=== PATIENT | female | born 1945 ===

== ENCOUNTER 2017-03-02 19:36 | Inpatient (IN) | payer SELFPAY ==
[2017-03-02 19:40] VITALS: BMI 28.5
[2017-03-02] MEDS ORDERED: Labetalol 25mg/5ml Syringe IVP STA ×2 (19:43→21:17)
[2017-03-02] MEDS ORDERED: Labetalol 25mg/5ml Syringe ONE ×2 (19:49→21:45)
[2017-03-02 19:59] LABS: BASO % 0.1 % (0.0-2.0); HEMATOCRIT 42.2 % (34.0-47.0); LYMPH # 0.5 K/uL (1.0-4.3); LYMPH % 2.3 % (20.0-40.0); MEAN CELL VOLUME 82.8 fL (81.0-99.0); MEAN CORPUSCULAR HEMOGLOBIN 26.3 pg (27.0-31.0); MEAN CORPUSCULAR HGB CONC 31.8 g/dL (33.0-37.0); MEAN PLATELET VOLUME 10.3 fL (7.2-11.7); MONO # 1.2 K/uL (0.0-0.8); MONO % 5.6 % (0.0-10.0); PLATELET COUNT 148 K/uL (130-400); RED CELL DISTRIBUTION WIDTH 14.4 % (11.5-14.5); WHITE BLOOD COUNT 21.2 K/uL (4.8-10.8)
--- NOTE | 2017-03-02 20:08 | CT ---
EXAM: CT Head Without Intravenous Contrast CLINICAL HISTORY: 71 years old, female; Signs and symptoms; Other: Code stroke TECHNIQUE: Axial computed tomography images of the head/brain without intravenous contrast. All CT scans at this facility use one or more dose reduction techniques, viz.: automated exposure control; ma/kV adjustment per patient size (including targeted exams where dose is matched to indication; i.e. head); or iterative reconstruction technique. COMPARISON: No relevant prior studies available. FINDINGS: Brain: Significant bilateral white matter changes. This is nonspecific and may include microangiopathic disease, small lacunae of indeterminate chronicity, chronic infarcts and/or encephalomalacia. Vascular calcification. No hemorrhage. No edema. Ventricles: No hydrocephalus. Bones: Skull is intact. Sinuses: No acute sinusitis. Mastoid air cells: No mastoid effusion. IMPRESSION: Significant bilateral white matter changes. This is nonspecific and may include microangiopathic disease, small lacunae of indeterminate chronicity, chronic infarcts and/or encephalomalacia. Vascular calcification. Acute infarcts/early ischemic changes may not be detectable by this modality; MRI is more sensitive in detecting acute ischemia and should be considered if acute stroke is clinically suspected, unless contraindicated in this patient.
[2017-03-02 20:09] LABS: INR 1.1
[2017-03-02 20:12] LABS: CHLORIDE 96 mmol/L (98-107); SODIUM 134 mmol/L (132-148)
[2017-03-02 20:13] LABS: POTASSIUM 3.6 mmol/L (3.6-5.2)
[2017-03-02 20:14] LABS: CHOLESTEROL 139 mg/dL (0-199)
[2017-03-02 20:15] LABS: ALB/GLOB RATIO 1.1 (1.0-2.1); ALKALINE PHOSPHATASE 88 U/L (38-126); ALT/SGPT 35 U/L (9-52); AST/SGOT 56 U/L (14-36); BILIRUBIN,TOTAL 1.2 mg/dL (0.2-1.3); BLOOD UREA NITROGEN 20 mg/dL (7-17); CALCIUM 10.1 mg/dl (8.6-10.4); CARBON DIOXIDE 25 mmol/L (22-30); GFR AFRICAN-AMERICAN > 60; GLUCOSE,RANDOM 193 mg/dL (65-105); TOTAL PROTEIN 8.1 g/dL (6.3-8.3)
--- NOTE | 2017-03-02 21:08 | C.PDOC ---
History Of Present Illness 71 year old female brought from home by EMS for an acute change in mental status. Patient was found by her prostrated on her bed asking to be taken to the bathroom, states he had difficulty walking her to the bathroom and she became incontinent, lethargic, and delirious. Time Seen by Provider: 03/02/17 19:39 Chief Complaint (Nursing): Altered Mental Status History Per: Family History/Exam Limitations: None Onset/Duration Of Symptoms: Hrs Onset Of Symptoms: Cannot Confirm Onset Current Symptoms Are (Timing): Still Present Usual Baseline: Other (Normal) Exacerbating Factor(s): Unknown Use Of Anticoag/Antiplatelets: No Recent travel outside of the [place]: No Associated Symptoms: Confused, Incontinence Past Medical History Reviewed: Historical Data, Nursing Documentation, Vital Signs Vital Signs: Last Vital Signs Temp 99.6 F 03/03/17 01:48 Pulse 96 H 03/03/17 01:48 Resp 20 03/03/17 01:48 BP 151/63 H 03/03/17 01:48 Pulse Ox 100 03/03/17 01:48 - Medical History PMH: HTN Surgical History: No Surg Hx Family History: States: Unknown Family Hx - Social History Hx Alcohol Use: No Hx Substance Use: No - Immunization History Hx Tetanus Toxoid Vaccination: No Hx Influenza Vaccination: No Hx Pneumococcal Vaccination: No Review Of Systems Review Of Systems: ROS cannot be obtained secondary to pt's inabilty to answer questions. Physical Exam - Physical Exam Appears: Confused, Other (Answers yes and no questions) Skin: Normal Color, Warm, Dry Head: Atraumatic, Normacephalic Eye(s): bilateral: Normal Inspection, EOMI Oral Mucosa: Moist Neck: Normal, Supple Chest: Symmetrical, No Tenderness Cardiovascular: Rhythm Regular Respiratory: Normal Breath Sounds, No Rales, No Rhonchi, No Wheezing Gastrointestinal/Abdominal: Soft, No Tenderness Extremity: Pedal Edema, Other (Moves extremities purposefully) ED Course And Treatment - Laboratory Results Result Diagrams: 03/02/17 19:56 03/02/17 19:56 Lab Interpretation: Abnormal (++ leukocytosis of ? source, CSF with WBC 3, RBC 42, Glu 97, Total Protein 75,) ECG: Interpreted By Nd ECG Rhythm: Sinus Rhythm ECG Interpretation: Normal Rate From EC O2 Sat by Pulse Oximetry: 99 Pulse Ox Interpretation: Normal - Radiology CXR: Interpreted by Me CXR Interpretation: Yes: No Acute Disease - CT Scan/US head CT Other Rad Studies (CT/US): Read By Radiologist (no acute changes), Radiology Report Reviewed Progress Note: Rocephin, Ampicillin, Vanco, labetolol IV x 2, lasix,. ketamine for sedation Reevaluation Time: 00:09 Reassessment Condition: Improved (persistent delerium, but calm cooperative) - Physician Consult Information Outcome Of Conversation: 0000: d/w Dr. Kim, Hospitalist covering [facility] pts, ok to tele Obs. Lumbar Puncture - Time Out Time Out: Side verified, Site verified, Patient ID confirmed, Sterile procedures obs. - Consent obtained Consent obtained: Written - Performed by Performed by: Attending Physician - Indications Indication(s): Suspected menigitis - Contraindications Contraindications: None - Patient Position Patient position: Left lateral decubitus - Local Anesthetic Local Anesthetic: lidocaine 1% Location: L2/L3 Needle size gauge: 21 Opening pressure cm CSF: 22 mm - Fluid Appearance Fluid Appearance: Clear - Post-procedure Post-procedure: No leak/bld from LP site, Dressing applied, Patient laid flat, Neurovascular status nml - CSF Studies CSF Studies: Cell count/diff, Glucose, Protein, Gram stain, culture/sensitivity - Complications Complications: None - Patient tolerated procedure Patient tolerated procedure: Well - Notes: Notes:: gentle sedation w Ketamine 150 mg IV with excellent result for approx 20 minutes - adequate for procedure, no further sedation required. Well tolerated. NIHSS Stroke Scale - Date/Time Evaluation Performed Date Performed: 03/02/17 Time Performed: 19:35 When Was NIHSS Performed: Baseline - How Severe is the Stoke Level of Consciousness: 1=Drowsy LOC to Questions: 2=Neither correct LOC to commands: 2=Neither correct Best Gaze: 0=Normal Visual: 0=No visual loss Facial: 0=Normal Motor Arm - Left: 0=No drift Motor Arm - Right: 0=No drift Motor Leg - Left: 0=No drift Motor Leg - Right: 0=No drift Limb Ataxia: 0=Absent Sensory: 0=Normal Best Language: 2=Severe aphasia Dysarthia: 2=Severe, near unintelligible or worse (non-verbal) Extinction & Inattention (Neglect): 0=Normal, no object Score: 9 Severity Of Stroke: 5-15= Moderate Stroke rTPA Inclusion/Exclusion - Refusal of Treatment Patient Refused Treatment: No - Inclusion Criteria for Altepase Patient is 18 years or Older: Yes Clinical DX Ischemic Stroke Cause Neurological Deficit: Yes Time of Onset Established Less Than 270 Mins Before TX Begin: No Risk/Benefit Discussed With Patient/Family Member Present: No - Exclusion Criteria for Altepase Uncontrolled Hypertension at Time of TX (SBP>185 or DBP>110): Yes Medical Decision Making Medical Decision Making: change of mental status and leukocytosis, uncontrolled HTN and elev glu pt with h/o non-compliance. though no nuchal rigidity nor photophobia, no source for leukocytosis found Empirically covered with triple ABX for suspicion of early meningitis LP with essentially normal CSF Pt essentially persistent delerium. Disposition Doctor Will See Patient In The: Hospital Counseled Patient/Family Regarding: Studies Performed, Diagnosis - Disposition Disposition: HOSPITALIZED Disposition Time: 00:15 Condition: FAIR - Clinical Impression Clinical Impression: Mental status change - Scribe Statement The provider has reviewed the documentation as recorded by the Marshalibmague Gonzales All medical record entries made by the Marshalibmague were at my direction and personally dictated by me. I have reviewed the chart and agree that the record accurately reflects my personal performance of the history, physical exam, medical decision making, and the department course for this patient. I have also personally directed, reviewed, and agree with the discharge instructions and disposition.
[2017-03-02 21:11] LABS: NEUTROPHIL 92 % (50-75); TOTAL CELLS COUNTED 100
[2017-03-02] MEDS ORDERED: Vancomycin 1 GM 1 GM/250 ML BAG IV ONE (21:15)
[2017-03-02 21:46] LABS: RBC URINE 7 /hpf (0-3); URINE BACTERIA RARE (<OCC); URINE BILIRUBIN NEGATIVE (NEGATIVE); URINE BLOOD 2+ (NEGATIVE); URINE COLOR Yellow (YELLOW); URINE GLUCOSE (UA) 1+ mg/dL (Normal); URINE KETONE NEGATIVE (NEGATIVE); URINE PROTEIN 3+ mg/dL (NEGATIVE); URINE UROBILINOGEN NORMAL mg/dL (0.2-1.0); WBC URINE 10 /hpf (0-5)
[2017-03-02 21:47] LABS: URINE LEUKOCYTE ESTERASE 1+ Leu/uL (Negative)
[2017-03-02] MEDS ORDERED: Ampicillin 2 GM in Sodium Chloride 0.9% 100 ML IVPB ONE (22:00)
[2017-03-02] MEDS ORDERED: Vancomycin 1 gm/NS 200 ml 1 GM/200 ML BAG IVPB STA (22:02)
[2017-03-02] MEDS ORDERED: Ketamine 50 mg/ml Inj (10 ml) IV STA (22:04)
[2017-03-02] MEDS ORDERED: Ketamine 50 mg/ml Inj (10 ml) ONE (22:23)
[2017-03-02 23:14] LABS: FLUID TYPE SPINAL FLUID
[2017-03-03] MEDS ORDERED: DEXTROSE 5% IV SCH (02:00)
[2017-03-03] MEDS ORDERED: WATER IV SCH (02:00)
[2017-03-03] MEDS: Dextrose 5%/0.9% NS 1,000 ML IV SCH ×3 (02:00→22:05)
[2017-03-03] MEDS ORDERED: ACYCLOVIR IV SCH (02:00)
--- NOTE | 2017-03-03 02:20 | CP.PCM.HP ---
<Yovany He - Last Filed: 03/03/17 02:05> History of Present Illness - History of Present Illness History of Present Illness: Medicine H/P CC: AMS HPI: Patient is a 71F with a PMH of DM, HLD, HTN, Epilepsy and Migraines who presents to the ED with AMS. Her found her at 3:30 am hanging off the side of the bed but still responsive. He states that yesterday she was unsteady on her feet. He put the patient back to bed when he found her. At 5pm the daughter arrived at the house and the patient was unable to recognize her daughter or her grandchildren. states the patient was struggling walking to the bathroom. She had vomit on her shirt when he found her and also vomited when he walked her to the bathroom. Patient had a normal BM today but had diarrhea 3 days ago. Denies prior episodes. describes the vomit as coffee grounds. + weakness and dizziness, + changes in speech and confusion. Denies ROSADO , CP, abdominal pain, leg pain, rash, changes in urine or blood in urine. Denies sick contacts, denies recent travel. ROS: * Constitutional: denies WL * HEENT: cataracts * Lungs: denies * Heart: denies echo/cath * GI: alternating diarrhea and constipation * Renal, denies * : denies * Breast: denies * MSK: denies falls, back pain, ambulates independently * Neuro: denies CVA. History of seizures, denies memory changes. + weakness, Denies numbness, MS, Alzheimer, myasthenia gravis * Endo: denies thyroid, +DM, Denies adrenal * Psych: Denies previous hospitalizations * Skin: Denies * Heme: denies easy bruising, anemia, leukemia, transfusion, transfusion, clotting disorders, anticoagulation disorders * Onc: denies cancer, immune problems * ID: denies MRSA, C. diff, HIV PMH: * Migrains * DM * HTN * HLD * Epilepsy PSH: Tubal Ligation FH: Mother strokes SH: , lives with , 120 pack year smoking history, 1 pint per day for 30 years, denies illicit drugs Meds: none Allergies: none Full Code Present on Admission - Present on Admission Any Indicators Present on Admission: No Review of Systems - Constitutional Constitutional: As Per HPI - EENT Eyes: As Per HPI Ears: As Per HPI - Breasts Breasts: As Per HPI - Cardiovascular Cardiovascular: As Per HPI - Respiratory Respiratory: As Per HPI - Gastrointestinal Gastrointestinal: As Per HPI - Genitourinary Genitourinary: As Per HPI - Reproductive: Female Reproductive:Female: As Per HPI - Menstruation Menstruation: As Per HPI - Musculoskeletal Musculoskeletal: As Per HPI - Integumentary Integumentary: As Per HPI - Neurological Neurological: As Per HPI - Psychiatric Psychiatric: As Per HPI - Endocrine Endocrine: As Per HPI - Hematologic/Lymphatic Hematologic: As Per HPI Past Patient History - Past Social History Smoking Status: Light Smoker < 10 Cigarettes Daily - CARDIAC Hx Hypertension: Yes - ENDOCRINE/METABOLIC Hx Diabetes Mellitus Type 2: Yes - PSYCHIATRIC Hx Substance Use: No - SURGICAL HISTORY Other/Comment: possible hysterectomy or tubal ligation Meds Allergies/Adverse Reactions: Allergies Allergy/AdvReac Type Severity Reaction Status Date / Time No Known Allergies Allergy Verified 03/02/17 19:43 Physical Exam - Constitutional Appears: Chronically Ill - Head Exam Head Exam: ATRAUMATIC, NORMAL INSPECTION, NORMOCEPHALIC - Eye Exam Eye Exam: PERRL - ENT Exam ENT Exam: Mucous Membranes Moist - Respiratory Exam Respiratory Exam: Clear to Auscultation Bilateral, NORMAL BREATHING PATTERN - Cardiovascular Exam Cardiovascular Exam: REGULAR RHYTHM - GI/Abdominal Exam GI & Abdominal Exam: Normal Bowel Sounds, Soft. absent: Distended, Tenderness - Extremities Exam Extremities exam: Positive for: tenderness (withdraws to palpation of the LE) - Neurological Exam Neurological exam: Altered Results - Vital Signs Recent Vital Signs: Last Vital Signs Temp 99.6 F 03/03/17 01:48 Pulse 96 H 03/03/17 01:48 Resp 20 03/03/17 01:48 BP 151/63 H 03/03/17 01:48 Pulse Ox 100 03/03/17 01:48 - Labs Result Diagrams: 03/02/17 19:56 03/02/17 19:56 Labs: Laboratory Results - last 24 hr 03/02/17 03/02/17 03/02/17 19:39 19:56 19:56 WBC 21.2 H RBC 5.09 Hgb 13.4 Hct 42.2 MCV 82.8 MCH 26.3 L MCHC 31.8 L RDW 14.4 Plt Count 148 MPV 10.3 Neut % (Auto) 92.0 H Lymph % (Auto) 2.3 L Glades % (Auto) 5.6 Eos % (Auto) 0.0 Baso % (Auto) 0.1 Neut # 19.5 H Lymph # 0.5 L Glades # 1.2 H Eos # 0.0 Baso # 0.0 Neutrophils % (Manual) 92 H Lymphocytes % (Manual) 6 L Monocytes % (Manual) 2 Platelet Estimate Normal PT 12.8 H INR 1.1 APTT 32 Sodium Potassium Chloride Carbon Dioxide Anion Gap BUN Creatinine Est GFR ( Amer) Est GFR (Non-Af Amer) POC Glucose (mg/dL) 194 H Random Glucose Hemoglobin A1c Calcium Total Bilirubin AST ALT Alkaline Phosphatase Troponin I Total Protein Albumin Globulin Albumin/Globulin Ratio Triglycerides Cholesterol LDL Cholesterol Direct HDL Cholesterol Urine Color Urine Clarity Urine pH Ur Specific Colliers Urine Protein Urine Glucose (UA) Urine Ketones Urine Blood Urine Nitrate Urine Bilirubin Urine Urobilinogen Ur Leukocyte Esterase Urine WBC (Auto) Urine RBC (Auto) Urine Bacteria Fluid Type CSF Volume CSF Appearance CSF WBC CSF RBC CSF Total Cell Counted CSF Monos/Macrophages CSF Comment CSF Glucose CSF Total Protein 03/02/17 03/02/17 03/02/17 19:56 19:56 21:28 WBC RBC Hgb Hct MCV MCH MCHC RDW Plt Count MPV Neut % (Auto) Lymph % (Auto) Glades % (Auto) Eos % (Auto) Baso % (Auto) Neut # Lymph # Glades # Eos # Baso # Neutrophils % (Manual) Lymphocytes % (Manual) Monocytes % (Manual) Platelet Estimate PT INR APTT Sodium 134 Potassium 3.6 Chloride 96 L Carbon Dioxide 25 Anion Gap 16 BUN 20 H Creatinine 0.9 Est GFR ( Amer) > 60 Est GFR (Non-Af Amer) > 60 POC Glucose (mg/dL) Random Glucose 193 H Hemoglobin A1c 6.7 H Calcium 10.1 Total Bilirubin 1.2 AST 56 H ALT 35 Alkaline Phosphatase 88 Troponin I 0.0250 Total Protein 8.1 Albumin 4.1 Globulin 3.9 Albumin/Globulin Ratio 1.1 Triglycerides 69 Cholesterol 139 LDL Cholesterol Direct 35 HDL Cholesterol 79 H Urine Color Yellow Urine Clarity Clear Urine pH 6.0 Ur Specific [place]liers 1.018 Urine Protein 3+ H Urine Glucose (UA) 1+ Urine Ketones Negative Urine Blood 2+ H Urine Nitrate Negative Urine Bilirubin Negative Urine Urobilinogen Normal Ur Leukocyte Esterase 1+ H Urine WBC (Auto) 10 H Urine RBC (Auto) 7 H Urine Bacteria Rare Fluid Type CSF Volume CSF Appearance CSF WBC CSF RBC CSF Total Cell Counted CSF Monos/Macrophages CSF Comment CSF Glucose CSF Total Protein 03/02/17 03/02/17 22:57 23:11 WBC RBC Hgb Hct MCV MCH MCHC RDW Plt Count MPV Neut % (Auto) Lymph % (Auto) Glades % (Auto) Eos % (Auto) Baso % (Auto) Neut # Lymph # Glades # Eos # Baso # Neutrophils % (Manual) Lymphocytes % (Manual) Monocytes % (Manual) Platelet Estimate PT INR APTT Sodium Potassium Chloride Carbon Dioxide Anion Gap BUN Creatinine Est GFR ( Amer) Est GFR (Non-Af Amer) POC Glucose (mg/dL) Random Glucose Hemoglobin A1c Calcium Total Bilirubin AST ALT Alkaline Phosphatase Troponin I Total Protein Albumin Globulin Albumin/Globulin Ratio Triglycerides Cholesterol LDL Cholesterol Direct HDL Cholesterol Urine Color Urine Clarity Urine pH Ur Specific Colliers Urine Protein Urine Glucose (UA) Urine Ketones Urine Blood Urine Nitrate Urine Bilirubin Urine Urobilinogen Ur Leukocyte Esterase Urine WBC (Auto) Urine RBC (Auto) Urine Bacteria Fluid Type Spinal fluid CSF Volume 1 CSF Appearance Clear/colorless CSF WBC 3.0 CSF RBC 42.0 H CSF Total Cell Counted TEST NOT PERFORMED CSF Monos/Macrophages TEST NOT PERFORMED CSF Comment CSF Glucose 97 H CSF Total Protein 75.0 H Assessment & Plan - Assessment and Plan (Free Text) Assessment: AMS * Consider viral meningitis * CT head: chronic white matter changes * LP * glucose 97 * protien 75 * WBC 3 * F/U gram stain/culture * F/U MRI brain * ID ([place]) * acyclovir 800mg IV Q12 * Blood cultures - F/U DM * accuchecks * ISS High dose Hx of coffee-ground Emesis * FOBT x2 - F/U * IV protonix PPx * colace * IV protonix * PT/OT * D5NS @ 100 <Juan Kim - Last Filed: 03/03/17 06:25> Results - Vital Signs Recent Vital Signs: Last Vital Signs Temp 98.7 F 03/03/17 05:49 Pulse 102 H 03/03/17 03:00 Resp 95 H 03/03/17 03:00 BP 157/72 H 03/03/17 03:00 Pulse Ox 99 03/03/17 02:21 - Labs Result Diagrams: 03/02/17 19:56 03/02/17 19:56 Labs: Laboratory Results - last 24 hr 03/02/17 03/02/17 03/02/17 19:39 19:56 19:56 WBC 21.2 H RBC 5.09 Hgb 13.4 Hct 42.2 MCV 82.8 MCH 26.3 L MCHC 31.8 L RDW 14.4 Plt Count 148 MPV 10.3 Neut % (Auto) 92.0 H Lymph % (Auto) 2.3 L Glades % (Auto) 5.6 Eos % (Auto) 0.0 Baso % (Auto) 0.1 Neut # 19.5 H Lymph # 0.5 L Glades # 1.2 H Eos # 0.0 Baso # 0.0 Neutrophils % (Manual) 92 H Lymphocytes % (Manual) 6 L Monocytes % (Manual) 2 Platelet Estimate Normal PT 12.8 H INR 1.1 APTT 32 Sodium Potassium Chloride Carbon Dioxide Anion Gap BUN Creatinine Est GFR ( Amer) Est GFR (Non-Af Amer) POC Glucose (mg/dL) 194 H Random Glucose Hemoglobin A1c Calcium Total Bilirubin AST ALT Alkaline Phosphatase Troponin I Total Protein Albumin Globulin Albumin/Globulin Ratio Triglycerides Cholesterol LDL Cholesterol Direct HDL Cholesterol Urine Color Urine Clarity Urine pH Ur Specific Colliers Urine Protein Urine Glucose (UA) Urine Ketones Urine Blood Urine Nitrate Urine Bilirubin Urine Urobilinogen Ur Leukocyte Esterase Urine WBC (Auto) Urine RBC (Auto) Urine Bacteria Fluid Type CSF Volume CSF Appearance CSF WBC CSF RBC CSF Total Cell Counted CSF Monos/Macrophages CSF Comment CSF Glucose CSF Total Protein 03/02/17 03/02/17 03/02/17 19:56 19:56 21:28 WBC RBC Hgb Hct MCV MCH MCHC RDW Plt Count MPV Neut % (Auto) Lymph % (Auto) Glades % (Auto) Eos % (Auto) Baso % (Auto) Neut # Lymph # Glades # Eos # Baso # Neutrophils % (Manual) Lymphocytes % (Manual) Monocytes % (Manual) Platelet Estimate PT INR APTT Sodium 134 Potassium 3.6 Chloride 96 L Carbon Dioxide 25 Anion Gap 16 BUN 20 H Creatinine 0.9 Est GFR ( Amer) > 60 Est GFR (Non-Af Amer) > 60 POC Glucose (mg/dL) Random Glucose 193 H Hemoglobin A1c 6.7 H Calcium 10.1 Total Bilirubin 1.2 AST 56 H ALT 35 Alkaline Phosphatase 88 Troponin I 0.0250 Total Protein 8.1 Albumin 4.1 Globulin 3.9 Albumin/Globulin Ratio 1.1 Triglycerides 69 Cholesterol 139 LDL Cholesterol Direct 35 HDL Cholesterol 79 H Urine Color Yellow Urine Clarity Clear Urine pH 6.0 Ur Specific [place] 1.018 Urine Protein 3+ H Urine Glucose (UA) 1+ Urine Ketones Negative Urine Blood 2+ H Urine Nitrate Negative Urine Bilirubin Negative Urine Urobilinogen Normal Ur Leukocyte Esterase 1+ H Urine WBC (Auto) 10 H Urine RBC (Auto) 7 H Urine Bacteria Rare Fluid Type CSF Volume CSF Appearance CSF WBC CSF RBC CSF Total Cell Counted CSF Monos/Macrophages CSF Comment CSF Glucose CSF Total Protein 03/02/17 03/02/17 22:57 23:11 WBC RBC Hgb Hct MCV MCH MCHC RDW Plt Count MPV Neut % (Auto) Lymph % (Auto) Glades % (Auto) Eos % (Auto) Baso % (Auto) Neut # Lymph # Glades # Eos # Baso # Neutrophils % (Manual) Lymphocytes % (Manual) Monocytes % (Manual) Platelet Estimate PT INR APTT Sodium Potassium Chloride Carbon Dioxide Anion Gap BUN Creatinine Est GFR ( Amer) Est GFR (Non-Af Amer) POC Glucose (mg/dL) Random Glucose Hemoglobin A1c Calcium Total Bilirubin AST ALT Alkaline Phosphatase Troponin I Total Protein Albumin Globulin Albumin/Globulin Ratio Triglycerides Cholesterol LDL Cholesterol Direct HDL Cholesterol Urine Color Urine Clarity Urine pH Ur Specific Colliers Urine Protein Urine Glucose (UA) Urine Ketones Urine Blood Urine Nitrate Urine Bilirubin Urine Urobilinogen Ur Leukocyte Esterase Urine WBC (Auto) Urine RBC (Auto) Urine Bacteria Fluid Type Spinal fluid CSF Volume 1 CSF Appearance Clear/colorless CSF WBC 3.0 CSF RBC 42.0 H CSF Total Cell Counted TEST NOT PERFORMED CSF Monos/Macrophages TEST NOT PERFORMED CSF Comment CSF Glucose 97 H CSF Total Protein 75.0 H Assessment & Plan - Date & Time Date: 03/03/17 (I have seen and examined the patient. I agree with the findings and plan of care as documented by Dr. He. Patient with acute mental status change. Lumbar puncture done in ED. Viral meningitis suspected. Acyclovir for now. Consult to ID. Fall precautions. Also with history of diabetes. Accucheck and NISS. Monitor for acute changes.) Time: 06:24 Attending/Attestation - Attestation I have personally seen and examined this patient.: Yes I have fully participated in the care of the patient.: Yes I have reviewed all pertinent clinical information: Yes
[2017-03-03] MEDS ORDERED: Pneumococcal 23-Valent Vaccine IM ONE (06:18)
--- NOTE | 2017-03-03 07:35 | RAD ---
HISTORY: Admission film COMPARISON: No prior. FINDINGS: LUNGS: Mild venous congestion. Right hilar prominence. PLEURA: No significant pleural effusion identified, no pneumothorax apparent. CARDIOVASCULAR: Normal. OSSEOUS STRUCTURES: No significant abnormalities. VISUALIZED UPPER ABDOMEN: Normal. OTHER FINDINGS: None. IMPRESSION: Mild venous congestion. Right hilar prominence.
[2017-03-03] MEDS: (Novolin R) Insulin Human Regular 100 units/ml vial SC SCH ×4 (08:21→21:43)
[2017-03-03] MEDS ORDERED: Gadodiamide 287 mg/ml 20 ml IV ONE (12:08)
--- NOTE | 2017-03-03 13:45 | MRI ---
PROCEDURE: MRI BRAIN WITH AND WITHOUT CONTRAST HISTORY: R/O Stroke, Viral Meningitis COMPARISON: None. TECHNIQUE: Multiplanar, multisequence MR images of the brain were obtained with (Omniscan 16 cc) and without intravenous contrast enhancement. FINDINGS: HEMORRHAGE: None DWI: No evidence of an acute or early subacute infarction. BRAIN PARENCHYMA: Expanded ventricular sulcal and cisternal spaces appreciated pattern with mild diffuse cerebral atrophy. There is relatively prominent chronic microangiopathy throughout the cerebrum manifest by subcortical and paravertebral centrum semiovale white matter signal abnormality. Similar changes mildly affect the alirio as well. No mass-effect is identified throughout. There is also no suspicious extra-axial fluid collection appreciated. ENHANCEMENT: No abnormal intracranial enhancement, including throughout the meninges. VENTRICLES: Unremarkable. No hydrocephalus. CRANIUM: Unremarkable. ORBITS: Grossly unremarkable. PARANASAL SINUSES/MASTOIDS: Clear VASCULAR SYSTEM: Skull base flow voids intact. OTHER FINDINGS: None . IMPRESSION: Age-related neuro degenerative change identified without definite acute intracranial findings as discussed above. No suspicious contrast enhancement pattern throughout the brain. There is no evidence to suggest meningitis based on the normal contrast enhancement pattern appreciated. Further clinical correlation is advised.
--- NOTE | 2017-03-03 20:08 | CP.PCM.PN ---
<Glenn Rizvi H - Last Filed: 03/03/17 21:53> Subjective - Date & Time of Evaluation Date of Evaluation: 03/03/17 Time of Evaluation: 14:00 - Subjective Subjective: Dr. Douglass note: Patient seen and examined in room. She is seen with family member in room. She is more awake and alert as compared to yesterday per patient's . She also reports to feeling better denying fever, chills, nausea, vomiting, photophobia, headache, neck pain, or stiffness. Objective - Vital Signs/Intake and Output Vital Signs (last 24 hours): Temp Pulse Resp BP Pulse Ox 99.2 F 100 H 20 149/73 95 03/03/17 15:17 03/03/17 16:00 03/03/17 15:17 03/03/17 15:17 03/03/17 15:17 Intake and Output: 03/03/17 03/04/17 18:59 06:59 Intake Total 627 Output Total 300 Balance 327 - Medications Medications: Current Medications Acetaminophen (Tylenol 325mg Tab) 650 mg PO Q6 PRN PRN Reason: Pain, Mild (1-3) Docusate Sodium (Colace) 100 mg PO BID PRN PRN Reason: Constipation Dextrose/Sodium Chloride (Dextrose 5%/0.9% Ns 1000 Ml) 1,000 mls @ 100 mls/hr IV .Q10H [facility] Last Admin: 03/03/17 14:11 Dose: 100 mls/hr Ceftriaxone Sodium 2 gm/ (Sodium Chloride) 100 mls @ 100 mls/hr IVPB Q12H [facility] Last Admin: 03/03/17 16:30 Dose: 100 mls/hr Acyclovir 800 mg/ Sodium (Chloride) 250 mls @ 166.667 mls/hr IV Q8H [facility] Last Admin: 03/03/17 14:06 Dose: 166.667 mls/hr Insulin Human Regular (Novolin R) 0 unit SC ACHS [facility] PRN Reason: Protocol Last Admin: 03/03/17 17:00 Dose: Not Given Ondansetron HCl (Zofran Inj) 4 mg IVP Q6 PRN PRN Reason: Nausea/Vomiting Pantoprazole Sodium (Protonix Inj) 40 mg IVP DAILY [facility] Last Admin: 03/03/17 09:41 Dose: 40 mg Pneumococcal Polyvalent Vaccine (Pneumovax 23 Vaccine) 0.5 ml IM .ONCE ONE Stop: 03/05/17 14:01 - Labs Labs: 03/02/17 19:56 03/02/17 19:56 PT 12.8 SECONDS (9.7-12.2) H 03/02/17 19:56 INR 1.1 03/02/17 19:56 APTT 32 SECONDS (21-34) 03/02/17 19:56 - Constitutional Appears: Non-toxic, No Acute Distress - Eye Exam Eye Exam: Normal appearance - Respiratory Exam Respiratory Exam: Clear to Ausculation Bilateral - Cardiovascular Exam Cardiovascular Exam: REGULAR RHYTHM, RRR, +S1, +S2 - GI/Abdominal Exam GI & Abdominal Exam: Soft. absent: Tenderness - Neurological Exam Neurological Exam: Alert, Awake, Oriented x3 Additional comments: No meningeal signs, no neck stiffness Assessment and Plan - Assessment and Plan (Free Text) Assessment: AMS- Viral Meningits 03/03: IV acylcyvir and Rocephin, results most likely show viral mengitis, also ordered a procalcentnis. MRI preformed which was unremarkable, culture is negative. removed her rao catheter. Removed her from isolation. * * Consider viral meningitis * CT head: chronic white matter changes * LP * glucose 97 * protien 75 * WBC 3 * F/U gram stain/culture * F/U MRI brain * ID (Gama) * acyclovir 800mg IV Q12 * Blood cultures - F/U UTI 03/03: IV Rocephin given, urine culture negative. DM * 03/03: continue accu checks, sliding sclale, with hypoglycemia protocol. * accuchecks * ISS High dose Hx of coffee-ground Emesis * 03/03: FOBT is negative, continue protonix * FOBT x2 - F/U * IV protonix PPx * 03/03: No IV fluids, need PT, protonix, colace. * colace * IV protonix * PT/OT * D5NS @ 100 <Komal Thrasher - Last Filed: 03/04/17 13:32> Objective - Vital Signs/Intake and Output Vital Signs (last 24 hours): Temp Pulse Resp BP Pulse Ox 98.0 F 67 20 153/74 H 97 03/04/17 08:05 03/04/17 08:05 03/04/17 08:05 03/04/17 08:05 03/04/17 08:05 Intake and Output: 03/04/17 03/04/17 06:59 18:59 Intake Total 1906 Output Total 450 Balance 1456 - Medications Medications: Current Medications Acetaminophen (Tylenol 325mg Tab) 650 mg PO Q6 PRN PRN Reason: Pain, Mild (1-3) Docusate Sodium (Colace) 100 mg PO BID PRN PRN Reason: Constipation Enoxaparin Sodium (Lovenox) 40 mg SC DAILY [facility] Dextrose/Sodium Chloride (Dextrose 5%/0.9% Ns 1000 Ml) 1,000 mls @ 100 mls/hr IV .Q10H [facility] Last Admin: 03/04/17 08:01 Dose: Not Given Ceftriaxone Sodium 2 gm/ (Sodium Chloride) 100 mls @ 100 mls/hr IVPB Q12H [facility] Last Admin: 03/04/17 03:50 Dose: 100 mls/hr Acyclovir 800 mg/ Sodium (Chloride) 250 mls @ 166.667 mls/hr IV Q8H [facility] Last Admin: 03/04/17 05:51 Dose: 166.667 mls/hr Insulin Human Regular (Novolin R) 0 unit SC ACHS [facility] PRN Reason: Protocol Last Admin: 03/04/17 12:48 Dose: 2 unit Ondansetron HCl (Zofran Inj) 4 mg IVP Q6 PRN PRN Reason: Nausea/Vomiting Pantoprazole Sodium (Protonix Inj) 40 mg IVP DAILY [facility] Last Admin: 03/04/17 10:26 Dose: 40 mg Pneumococcal Polyvalent Vaccine (Pneumovax 23 Vaccine) 0.5 ml IM .ONCE ONE Stop: 03/05/17 14:01 Potassium Chloride (K-Dur 20 Meq Er Tab) 40 meq PO BID [facility] Stop: 03/04/17 18:01 Last Admin: 03/04/17 10:26 Dose: 40 meq - Labs Labs: 03/04/17 08:26 03/04/17 08:26 PT 12.8 SECONDS (9.7-12.2) H 03/02/17 19:56 INR 1.1 03/02/17 19:56 APTT 32 SECONDS (21-34) 03/02/17 19:56 Attending/Attestation - Attestation I have personally seen and examined this patient.: Yes I have fully participated in the care of the patient.: Yes I have reviewed all pertinent clinical information, including history, physical exam and plan: Yes Notes (Text): Patient is a 71F with a PMH of DM, HLD, HTN, Epilepsy and Migraines who presents to the ED with AMS. Spoke to her at bedside Patient is lying comfortable.Patient had LP at ER. 1.Viral meningitis-IV acylcyvir and Rocephin. MRI preformed which was unremarkable follow culturs 2.DM 3.UTI 4.S/P coffee ground emesis continue protonix and DVT prophylaxis 03/04/17 13:32
[2017-03-04] MEDS: Dextrose 5%/0.9% NS 1,000 ML IV SCH ×2 (08:01→19:43)
[2017-03-04] MEDS: (Novolin R) Insulin Human Regular 100 units/ml vial SC SCH ×4 (08:02→21:42)
[2017-03-04 08:41] LABS: BASO % 0.3 % (0.0-2.0); EOS % 0.1 % (0.0-4.0); HEMATOCRIT 36.7 % (34.0-47.0); LYMPH # 1.4 K/uL (1.0-4.3); LYMPH % 14.6 % (20.0-40.0); MEAN CELL VOLUME 83.6 fL (81.0-99.0); MEAN CORPUSCULAR HEMOGLOBIN 26.7 pg (27.0-31.0); MEAN PLATELET VOLUME 10.7 fL (7.2-11.7); MONO # 0.9 K/uL (0.0-0.8); MONO % 9.2 % (0.0-10.0); RED CELL DISTRIBUTION WIDTH 14.3 % (11.5-14.5)
[2017-03-04 08:49] LABS: WHITE BLOOD COUNT 9.6 K/uL (4.8-10.8)
[2017-03-04 08:56] LABS: CHLORIDE 105 mmol/L (98-107); SODIUM 136 mmol/L (132-148)
[2017-03-04 08:57] LABS: ALB/GLOB RATIO 0.9 (1.0-2.1); ALKALINE PHOSPHATASE 52 U/L (38-126); AST/SGOT 109 U/L (14-36); BILIRUBIN,TOTAL 0.7 mg/dL (0.2-1.3); BLOOD UREA NITROGEN 13 mg/dL (7-17); CARBON DIOXIDE 24 mmol/L (22-30); GFR AFRICAN-AMERICAN > 60; GLUCOSE,RANDOM 110 mg/dL (65-105); PHOSPHOROUS 2.2 mg/dL (2.5-4.5); TOTAL PROTEIN 6.3 g/dL (6.3-8.3)
[2017-03-04 08:58] LABS: ALT/SGPT 43 U/L (9-52); CALCIUM 8.6 mg/dl (8.6-10.4); MAGNESIUM 1.6 mg/dL (1.6-2.3)
--- NOTE | 2017-03-04 09:51 | CP.PCM.PN ---
<Rao Cochran R - Last Filed: 03/04/17 11:15> Subjective - Date & Time of Evaluation Date of Evaluation: 03/04/17 Time of Evaluation: 09:48 - Subjective Subjective: PGY-1 note for medicine. There were no acute events overnight. She is voiding in bedpan as normal. She is alert and awake, AAOx3 but confused at times, possible dementia. She reports feeling tired. She denies fever, chills, nausea, vomiting, photophobia, headache , neck pain, or stiffness. Objective - Vital Signs/Intake and Output Vital Signs (last 24 hours): Temp Pulse Resp BP Pulse Ox 98.0 F 67 20 153/74 H 97 03/04/17 08:05 03/04/17 08:05 03/04/17 08:05 03/04/17 08:05 03/04/17 08:05 Intake and Output: 03/04/17 03/04/17 06:59 18:59 Intake Total 1906 Output Total 450 Balance 1456 - Medications Medications: Current Medications Acetaminophen (Tylenol 325mg Tab) 650 mg PO Q6 PRN PRN Reason: Pain, Mild (1-3) Docusate Sodium (Colace) 100 mg PO BID PRN PRN Reason: Constipation Dextrose/Sodium Chloride (Dextrose 5%/0.9% Ns 1000 Ml) 1,000 mls @ 100 mls/hr IV .Q10H [facility] Last Admin: 03/04/17 08:01 Dose: Not Given Ceftriaxone Sodium 2 gm/ (Sodium Chloride) 100 mls @ 100 mls/hr IVPB Q12H [facility] Last Admin: 03/04/17 03:50 Dose: 100 mls/hr Acyclovir 800 mg/ Sodium (Chloride) 250 mls @ 166.667 mls/hr IV Q8H [facility] Last Admin: 03/04/17 05:51 Dose: 166.667 mls/hr Insulin Human Regular (Novolin R) 0 unit SC ACHS [facility] PRN Reason: Protocol Last Admin: 03/04/17 08:02 Dose: Not Given Ondansetron HCl (Zofran Inj) 4 mg IVP Q6 PRN PRN Reason: Nausea/Vomiting Pantoprazole Sodium (Protonix Inj) 40 mg IVP DAILY [facility] Last Admin: 03/03/17 09:41 Dose: 40 mg Pneumococcal Polyvalent Vaccine (Pneumovax 23 Vaccine) 0.5 ml IM .ONCE ONE Stop: 03/05/17 14:01 Potassium Chloride (K-Dur 20 Meq Er Tab) 40 meq PO BID [facility] Stop: 03/04/17 18:01 - Labs Labs: 03/04/17 08:26 03/04/17 08:26 PT 12.8 SECONDS (9.7-12.2) H 03/02/17 19:56 INR 1.1 03/02/17 19:56 APTT 32 SECONDS (21-34) 03/02/17 19:56 - Constitutional Appears: No Acute Distress - Head Exam Head Exam: ATRAUMATIC, NORMAL INSPECTION - Eye Exam Eye Exam: EOMI - ENT Exam ENT Exam: Mucous Membranes Moist - Neck Exam Neck Exam: Normal Inspection. absent: Lymphadenopathy - Respiratory Exam Respiratory Exam: Clear to Ausculation Bilateral, NORMAL BREATHING PATTERN. absent: Rales, Rhonchi, Wheezes - Cardiovascular Exam Cardiovascular Exam: REGULAR RHYTHM, +S1, +S2. absent: Bradycardia, Tachycardia , Murmur - GI/Abdominal Exam GI & Abdominal Exam: Soft. absent: Tenderness - Extremities Exam Extremities Exam: absent: Pedal Edema - Neurological Exam Neurological Exam: Alert, Awake, Oriented x3 Additional comments: No meningeal signs, no neck stiffness - Psychiatric Exam Psychiatric exam: Normal Affect, Normal Mood - Skin Skin Exam: Intact, Normal Color, Warm Assessment and Plan - Assessment and Plan (Free Text) Assessment: AMS- Viral Meningits 03/03: IV acylcyvir and Rocephin, results most likely show viral meningitis, also ordered a procalcitonin. MRI preformed which was unremarkable, culture is negative. removed her rao catheter. Removed her from isolation. * * Consider viral meningitis * CT head: chronic white matter changes * LP * glucose 97 * protien 75 * WBC 3 * F/U gram stain/culture * MRI brain 03/03/17 No suspicious contrast enhancement pattern throughout the brain. There is no evidence to suggest meningitis based on the normal contrast enhancement pattern appreciated * ID (Gama, Eliel covering) * acyclovir 800mg IV Q8 * ceftriaxone 2gm ivpb q12h * Blood cultures 03/02/17 negative up to date * Procalcitonin 2.47 H * F/U ECHO, Venous Doppler UTI * Urine culture 03/03/17 negative * ceftriaxone 2gm ivpb q12h DM * 03/03: continue accu checks, sliding sclale, with hypoglycemia protocol. * accuchecks * ISS High dose Hx of coffee-ground Emesis * FOBT negative * IV protonix PPx * colace * IV protonix * PT/OT - PT recommends rehab as pt exhibits severe, acute and evolving impairment of all functional mobility and ambulation * D5NS @ 100 * lovenox 40mg sc qd * consistent carb diet <Komal Thrasher - Last Filed: 03/04/17 13:41> Objective - Vital Signs/Intake and Output Vital Signs (last 24 hours): Temp Pulse Resp BP Pulse Ox 98.0 F 67 20 153/74 H 97 03/04/17 08:05 03/04/17 08:05 03/04/17 08:05 03/04/17 08:05 03/04/17 08:05 Intake and Output: 03/04/17 03/04/17 06:59 18:59 Intake Total 1906 Output Total 450 Balance 1456 - Medications Medications: Current Medications Acetaminophen (Tylenol 325mg Tab) 650 mg PO Q6 PRN PRN Reason: Pain, Mild (1-3) Docusate Sodium (Colace) 100 mg PO BID PRN PRN Reason: Constipation Enoxaparin Sodium (Lovenox) 40 mg SC DAILY [facility] Dextrose/Sodium Chloride (Dextrose 5%/0.9% Ns 1000 Ml) 1,000 mls @ 100 mls/hr IV .Q10H [facility] Last Admin: 03/04/17 08:01 Dose: Not Given Ceftriaxone Sodium 2 gm/ (Sodium Chloride) 100 mls @ 100 mls/hr IVPB Q12H [facility] Last Admin: 03/04/17 03:50 Dose: 100 mls/hr Acyclovir 800 mg/ Sodium (Chloride) 250 mls @ 166.667 mls/hr IV Q8H [facility] Last Admin: 03/04/17 05:51 Dose: 166.667 mls/hr Insulin Human Regular (Novolin R) 0 unit SC ACHS [facility] PRN Reason: Protocol Last Admin: 03/04/17 12:48 Dose: 2 unit Ondansetron HCl (Zofran Inj) 4 mg IVP Q6 PRN PRN Reason: Nausea/Vomiting Pantoprazole Sodium (Protonix Inj) 40 mg IVP DAILY [facility] Last Admin: 03/04/17 10:26 Dose: 40 mg Pneumococcal Polyvalent Vaccine (Pneumovax 23 Vaccine) 0.5 ml IM .ONCE ONE Stop: 03/05/17 14:01 Potassium Chloride (K-Dur 20 Meq Er Tab) 40 meq PO BID [facility] Stop: 03/04/17 18:01 Last Admin: 03/04/17 10:26 Dose: 40 meq - Labs Labs: 03/04/17 08:26 03/04/17 08:26 PT 12.8 SECONDS (9.7-12.2) H 03/02/17 19:56 INR 1.1 03/02/17 19:56 APTT 32 SECONDS (21-34) 03/02/17 19:56 Attending/Attestation - Attestation I have personally seen and examined this patient.: Yes I have fully participated in the care of the patient.: Yes I have reviewed all pertinent clinical information, including history, physical exam and plan: Yes Notes (Text): Patient is a 71years female with a PMH of DM, HLD, HTN, Epilepsy and Migraines who presents to the ED with AMS. Spoke to her at bedside Patient is lying comfortable.Patient had LP at ER. 1.Viral meningitis-IV acylcyvir and Rocephin. MRI preformed which was unremarkable follow cultures negative,UA with signs of UTI continue antibiotics and follow Dr hernandez 2.DM 3.UTI 4.S/P coffee ground emesis ? FOBT negative 5Leg pain and leg edema venous doppler,Echo 6.Unsteady gait-Rehab continue protonix and DVT prophylaxis 03/04/17 13:40
[2017-03-04] MEDS: Potassium Chloride 20 mEq ER Tab PO SCH ×2 (10:26→17:28)
[2017-03-04] MEDS ORDERED: Potassium & Sodium Phosphate PO ONE (11:00)
[2017-03-05 06:54] LABS: BASO % 0.4 % (0.0-2.0); EOS % 0.6 % (0.0-4.0); HEMATOCRIT 37.1 % (34.0-47.0); LYMPH # 1.4 K/uL (1.0-4.3); LYMPH % 18.7 % (20.0-40.0); MEAN CORPUSCULAR HGB CONC 32.5 g/dL (33.0-37.0); MEAN PLATELET VOLUME 10.6 fL (7.2-11.7); MONO # 0.6 K/uL (0.0-0.8); MONO % 7.6 % (0.0-10.0); RED CELL DISTRIBUTION WIDTH 14.3 % (11.5-14.5); WHITE BLOOD COUNT 7.3 K/uL (4.8-10.8)
[2017-03-05] MEDS: Dextrose 5%/0.9% NS 1,000 ML IV SCH ×2 (07:55→22:05)
[2017-03-05] MEDS: (Novolin R) Insulin Human Regular 100 units/ml vial SC SCH ×4 (08:15→22:05)
[2017-03-05 08:21] LABS: CHLORIDE 105 mmol/L (98-107)
[2017-03-05 08:22] LABS: SODIUM 140 mmol/L (132-148)
[2017-03-05 08:24] LABS: ALB/GLOB RATIO 0.7 (1.0-2.1); ALKALINE PHOSPHATASE 56 U/L (38-126); AST/SGOT 126 U/L (14-36); BILIRUBIN,TOTAL 0.5 mg/dL (0.2-1.3); BLOOD UREA NITROGEN 10 mg/dL (7-17); CARBON DIOXIDE 27 mmol/L (22-30); GFR AFRICAN-AMERICAN > 60; GLUCOSE,RANDOM 122 mg/dL (65-105); TOTAL PROTEIN 7.9 g/dL (6.3-8.3)
[2017-03-05 08:25] LABS: ALT/SGPT 45 U/L (9-52); CALCIUM 9.4 mg/dl (8.6-10.4)
[2017-03-05 08:29] LABS: POTASSIUM 3.6 mmol/L (3.6-5.2)
[2017-03-05] MEDS: Enoxaparin 40 mg Syringe SC SCH ×2 (10:00→12:00)
[2017-03-05] MEDS ORDERED: Enoxaparin 40 mg Syringe SC SCH (10:00)
[2017-03-05] MEDS ORDERED: Pneumococcal 23-Valent Vaccine IM ONE (14:00)
[2017-03-05] MEDS ORDERED: Influenza Vaccine 60 mcg/0.5 mL SYR (4YR UP) IM ONE (14:00)
--- NOTE | 2017-03-05 14:33 | VASCLAB ---
PROCEDURE: Lower Extremity Venous Duplex Exam. HISTORY: Pain in limb PRIORS: None. TECHNIQUE: Bilateral common femoral, femoral, popliteal and posterior tibial, peroneal and great saphenous veins were evaluated. Flow was assessed with color Doppler, compressibility, assessment of phasic flow and augmentation response. Report prepared by HUGO Shin FINDINGS: RIGHT: 1. Common Femoral Vein: 1.1. Compressibility - Fully compressible: Thrombus - None : Flow - Phasic: Augmentation -Normal: Reflux - None. 2. Femoral Vein: 2.1. Compressibility - Fully compressible: Thrombus - None : Flow - Phasic: Augmentation -Normal: Reflux - None. 3. Popliteal Vein: 3.1. Compressibility - Fully compressible: Thrombus - None : Flow - Phasic: Augmentation -Normal: Reflux - None. 4. Posterior Tibial Vein: 4.1. Compressibility - Fully compressible: Thrombus - None: Flow - Phasic: Augmentation -Normal: Reflux - None. 5. Peroneal Vein: 5.1. Compressibility - Fully compressible: Thrombus - None: Flow - Phasic: Augmentation -Normal: Reflux - None. 6. Great Saphenous Vein: 6.1. Compressibility - Fully compressible: Thrombus - None: Flow - Phasic: Augmentation - Normal: Reflux - None LEFT: 1. Common Femoral Vein: 1.1. Compressibility - Fully compressible: Thrombus - None: Flow - Phasic: Augmentation -Normal: Reflux - None. 2. Femoral Vein: 2.1. Compressibility - Fully compressible: Thrombus - None: Flow - Phasic: Augmentation -Normal: Reflux - None. 3. Popliteal Vein: 3.1. Compressibility - Fully compressible: Thrombus - None : Flow - Phasic: Augmentation -Normal: Reflux - None. 4. Posterior Tibial Vein: 4.1. Compressibility - Fully compressible: Thrombus - None: Flow - Phasic: Augmentation -Normal: Reflux - None. 5. Peroneal Vein: 5.1. Compressibility - Fully compressible: Thrombus - None: Flow - Phasic: Augmentation -Normal: Reflux - None. 6. Great Saphenous Vein: 6.1. Compressibility - Fully compressible: Thrombus - None: Flow - Phasic: Augmentation - Normal: Reflux - Mild. 2.50 seconds OTHER FINDINGS: Right: None significant. Left: None significant. IMPRESSION: Right: No evidence of deep or superficial vein thrombosis of the right lower extremity. Normal valve function noted of the right side. Left: No evidence of deep or superficial vein thrombosis of the left lower extremity. Valvular incompetence noted of the upper great saphenous vein.
--- NOTE | 2017-03-05 15:10 | CP.PCM.PN ---
<DimasRao R - Last Filed: 03/05/17 14:50> Subjective - Date & Time of Evaluation Date of Evaluation: 03/05/17 Time of Evaluation: 10:00 - Subjective Subjective: PGY-1 note for medicine. There were no acute events overnight. She is alert and awake, AAOx3. She complained of feeling constipated. She reports feeling tired. She denies fever, chills, nausea, vomiting, photophobia, headache, neck pain, or stiffness. Objective - Vital Signs/Intake and Output Vital Signs (last 24 hours): Temp Pulse Resp BP Pulse Ox 98 F 90 20 187/100 H 96 03/05/17 08:00 03/05/17 08:00 03/05/17 08:00 03/05/17 08:00 03/05/17 08:00 Intake and Output: 03/05/17 03/05/17 06:59 18:59 Intake Total 800 1000 Output Total 0 Balance 800 1000 - Medications Medications: Current Medications Acetaminophen (Tylenol 325mg Tab) 650 mg PO Q6 PRN PRN Reason: Pain, Mild (1-3) Docusate Sodium (Colace) 100 mg PO BID PRN PRN Reason: Constipation Enoxaparin Sodium (Lovenox) 40 mg SC DAILY [facility] Last Admin: 03/05/17 12:00 Dose: 40 mg Acyclovir 800 mg/ Sodium (Chloride) 250 mls @ 166.667 mls/hr IV Q8H [facility] Last Admin: 03/05/17 06:00 Dose: 166.667 mls/hr Dextrose/Sodium Chloride (Dextrose 5%/0.9% Ns 1000 Ml) 1,000 mls @ 75 mls/hr IV .[id number] [facility] Ceftriaxone Sodium 2 gm/ (Dextrose) 100 mls @ 100 mls/hr IVPB Q12H [facility] Insulin Human Regular (Novolin R) 0 unit SC ACHS [facility] PRN Reason: Protocol Last Admin: 03/05/17 12:30 Dose: Not Given Ondansetron HCl (Zofran Inj) 4 mg IVP Q6 PRN PRN Reason: Nausea/Vomiting Pantoprazole Sodium (Protonix Inj) 40 mg IVP DAILY [facility] Last Admin: 03/05/17 12:00 Dose: 40 mg - Labs Labs: 03/05/17 06:45 03/05/17 06:45 PT 12.8 SECONDS (9.7-12.2) H 03/02/17 19:56 INR 1.1 03/02/17 19:56 APTT 32 SECONDS (21-34) 03/02/17 19:56 - Additional Findings Additional findings: - Constitutional Appears: No Acute Distress - Head Exam Head Exam: ATRAUMATIC, NORMAL INSPECTION - Eye Exam Eye Exam: EOMI - ENT Exam ENT Exam: Mucous Membranes Moist - Neck Exam Neck Exam: Normal Inspection. absent: Lymphadenopathy - Respiratory Exam Respiratory Exam: Clear to Ausculation Bilateral, NORMAL BREATHING PATTERN. absent: Rales, Rhonchi, Wheezes - Cardiovascular Exam Cardiovascular Exam: REGULAR RHYTHM, +S1, +S2. absent: Bradycardia, Tachycardia , Murmur - GI/Abdominal Exam GI & Abdominal Exam: Soft. absent: Tenderness - Extremities Exam Extremities Exam: absent: Pedal Edema - Neurological Exam Neurological Exam: Alert, Awake, Oriented x3 Additional comments: No meningeal signs, no neck stiffness - Psychiatric Exam Psychiatric exam: Normal Affect, Normal Mood - Skin Skin Exam: Intact, Normal Color, Warm Assessment and Plan - Assessment and Plan (Free Text) Assessment: AMS- Viral Meningits * AAOx3 * Consider viral meningitis * CT head: chronic white matter changes * LP 03/02 * glucose 97 * protien 75 * WBC 3 * CSF culture no growth up to date * MRI brain 03/03/17 No suspicious contrast enhancement pattern throughout the brain. There is no evidence to suggest meningitis based on the normal contrast enhancement pattern appreciated * ID (Gama, Eliel covering) * acyclovir 800mg IV Q8 started 03/03 * ceftriaxone 2gm ivpb q12h started 03/05 * Blood cultures 03/02/17 negative up to date * Procalcitonin 2.47 H * F/U ECHO report * Venous doppler 03/05/17: no evidence of deep or superficial vein thrombosis of right or left lower extremity. Valvular incompetence noted of upper great saphenous vein. UTI * Urine culture 03/03/17 negative * ceftriaxone 2gm ivpb q12h started 03/05 HTN * norvasc 10mg po qd * hydralazine 10mg ivp prn, if systolic blood pressure > 160 DM * sugars well controlled * accuchecks * ISS High dose Hx of coffee-ground Emesis, resolved * FOBT negative * IV protonix PPx * colace 100mg po bid prn * IV protonix * PT/OT - PT recommends rehab as pt exhibits severe, acute and evolving impairment of all functional mobility and ambulation * D5NS @ 75 * lovenox 40mg sc qd * consistent carb diet <RuizPeter H - Last Filed: 03/05/17 16:46> Objective - Vital Signs/Intake and Output Vital Signs (last 24 hours): Temp Pulse Resp BP Pulse Ox 97.8 F 63 20 179/90 H 96 03/05/17 16:40 03/05/17 16:40 03/05/17 16:40 03/05/17 16:40 03/05/17 08:00 Intake and Output: 03/05/17 03/05/17 06:59 18:59 Intake Total 800 1000 Output Total 0 Balance 800 1000 - Medications Medications: Current Medications Acetaminophen (Tylenol 325mg Tab) 650 mg PO Q6 PRN PRN Reason: Pain, Mild (1-3) Amlodipine Besylate (Norvasc) 10 mg PO DAILY [facility] Last Admin: 03/05/17 16:31 Dose: 10 mg Docusate Sodium (Colace) 100 mg PO BID PRN PRN Reason: Constipation Enoxaparin Sodium (Lovenox) 40 mg SC DAILY [facility] Last Admin: 03/05/17 12:00 Dose: 40 mg Hydralazine HCl (Apresoline) 10 mg IVP Q6H PRN PRN Reason: Systolic Blood Pressure Last Admin: 03/05/17 16:31 Dose: 10 mg Acyclovir 800 mg/ Sodium (Chloride) 250 mls @ 166.667 mls/hr IV Q8H [facility] Last Admin: 03/05/17 06:00 Dose: 166.667 mls/hr Dextrose/Sodium Chloride (Dextrose 5%/0.9% Ns 1000 Ml) 1,000 mls @ 75 mls/hr IV .[id number] [facility] Ceftriaxone Sodium 2 gm/ (Dextrose) 100 mls @ 100 mls/hr IVPB Q12H [facility] Last Admin: 03/05/17 16:32 Dose: 100 mls/hr Insulin Human Regular (Novolin R) 0 unit SC ACHS [facility] PRN Reason: Protocol Last Admin: 03/05/17 12:30 Dose: Not Given Ondansetron HCl (Zofran Inj) 4 mg IVP Q6 PRN PRN Reason: Nausea/Vomiting Pantoprazole Sodium (Protonix Inj) 40 mg IVP DAILY [facility] Last Admin: 03/05/17 12:00 Dose: 40 mg - Labs Labs: 03/05/17 06:45 03/05/17 06:45 PT 12.8 SECONDS (9.7-12.2) H 03/02/17 19:56 INR 1.1 03/02/17 19:56 APTT 32 SECONDS (21-34) 03/02/17 19:56 Attending/Attestation - Attestation I have personally seen and examined this patient.: Yes I have fully participated in the care of the patient.: Yes I have reviewed all pertinent clinical information, including history, physical exam and plan: Yes Notes (Text): 03/05/17 16:45 Medical attending: Agree with the above note by medical practitioners. The patient was doing much better today. At this moment will continue continue with IV acyclovir. Patient was currently pending and echo as well as Doppler at this time. Will have to continue monitoring the patient's mental status however it has improved Thank you very much Mukesh Ruiz
[2017-03-05] MEDS: cefTRIAXone 2 GM in Dextrose 5% In Water 100 ML IVPB SCH (16:32)
--- NOTE | 2017-03-05 19:08 | CARD ---
APPROVED REPORT EXAM: Two-dimensional and M-mode echocardiogram with Doppler and color Doppler. Other Information Quality : GoodRhythm : NSR INDICATION Peripheral Edema Congestive Heart Failure RISK FACTORS Diabetes 2D DIMENSIONS IVSd1.1 (0.7-1.1cm)LVDd3.2 (3.9-5.9cm) LVOT Diameter2.0 (1.8-2.4cm)PWd1.3 (0.7-1.1cm) LVDs2.1 (2.5-4.0cm)FS (%) 33.5 % LVEF (%)63.6 (>50%) M-Mode DIMENSIONS Left Atrium (MM)3.58 (2.5-4.0cm)Aortic Root3.51 (2.2-3.7cm) Aortic Cusp Exc.1.24 (1.5-2.0cm) Aortic Valve AoV Peak Gdgfvaut317.4cm/sAoV VTI41.1cmAO Peak GR.18mmHg LVOT Peak Mtznsjdx042.7cm/sLVOT VTI27.90cmAO Mean GR.12mmHg JOHN (VMAX)1.63qw0BWV (VTI)2.05cm2 Mitral Valve MV E Xkgzmicg70.4cm/sMV A Rxmqjkqi546.2cm/sE/A ratio0.6 TDI E/Lateral E'0.0E/Medial E'0.0 Tricuspid Valve TR Peak Jnydrzay920eu/sTR Peak Gr.27zoVxJFEQ00doDq LEFT VENTRICLE The left ventricle is normal size. There is moderate concentric left ventricular hypertrophy. The left ventricular function is normal. The left ventricular ejection fraction is within the normal range. There is normal LV segmental wall motion. Transmitral Doppler flow pattern is Grade I-abnormal relaxation pattern. RIGHT VENTRICLE The right ventricle is normal size. There is normal right ventricular wall thickness. The right ventricular systolic function is normal. ATRIA The left atrium size is normal. The right atrium size is normal. AORTIC VALVE The aortic valve is moderately sclerotic. There is trace aortic regurgitation. There is mild valvular aortic stenosis. MITRAL VALVE Mitral annular calcification is moderate. There is no mitral valve stenosis. TRICUSPID VALVE There is mild pulmonary hypertension. GREAT VESSELS The aortic root is normal in size. The IVC is dilated. <Conclusion> The left ventricle is normal size. There is moderate concentric left ventricular hypertrophy. The left ventricular function is normal. The left ventricular ejection fraction is within the normal range. There is normal LV segmental wall motion. Transmitral Doppler flow pattern is Grade I-abnormal relaxation pattern. The aortic valve is moderately sclerotic. There is mild valvular aortic stenosis. There is trace aortic regurgitation. There is mild pulmonary hypertension.
--- NOTE | 2017-03-05 21:15 | CARD ---
APPROVED REPORT EKG Measurement Heart [id number] <Conclusion> Normal sinus rhythm Biatrial enlargement Prolonged QT Abnormal ECG
[2017-03-06] MEDS: cefTRIAXone 2 GM in Dextrose 5% In Water 100 ML IVPB SCH ×2 (03:41→17:03)
[2017-03-06] MEDS: (Novolin R) Insulin Human Regular 100 units/ml vial SC SCH ×4 (08:15→22:27)
[2017-03-06 08:30] LABS: BASO % 0.6 % (0.0-2.0); EOS # 0.1 K/uL (0.0-0.7); EOS % 2.3 % (0.0-4.0); HEMATOCRIT 41.7 % (34.0-47.0); LYMPH # 1.4 K/uL (1.0-4.3); LYMPH % 24.6 % (20.0-40.0); MEAN CELL VOLUME 83.8 fL (81.0-99.0); MEAN CORPUSCULAR HGB CONC 32.2 g/dL (33.0-37.0); MEAN PLATELET VOLUME 10.3 fL (7.2-11.7); MONO # 0.5 K/uL (0.0-0.8); MONO % 8.9 % (0.0-10.0); NRBC % 0.1 % (0.0-2.0); RED CELL DISTRIBUTION WIDTH 14.6 % (11.5-14.5); WHITE BLOOD COUNT 5.8 K/uL (4.8-10.8)
[2017-03-06 08:44] LABS: CHLORIDE 103 mmol/L (98-107); POTASSIUM 3.3 mmol/L (3.6-5.2); SODIUM 138 mmol/L (132-148)
[2017-03-06 08:46] LABS: ALB/GLOB RATIO 0.7 (1.0-2.1); ALKALINE PHOSPHATASE 66 U/L (38-126); AST/SGOT 127 U/L (14-36); BILIRUBIN,TOTAL 0.5 mg/dL (0.2-1.3); CARBON DIOXIDE 26 mmol/L (22-30); GFR AFRICAN-AMERICAN > 60; TOTAL PROTEIN 8.8 g/dL (6.3-8.3)
[2017-03-06 08:47] LABS: ALT/SGPT 60 U/L (9-52); BLOOD UREA NITROGEN 9 mg/dL (7-17); CALCIUM 9.8 mg/dl (8.6-10.4); GLUCOSE,RANDOM 120 mg/dL (65-105)
[2017-03-06] MEDS: Enoxaparin 40 mg Syringe SC SCH (09:29)
[2017-03-06] MEDS ORDERED: Potassium Chloride 20 mEq ER Tab PO ONE (10:23)
[2017-03-06] MEDS ORDERED: Potassium Chloride 20 mEq ER Tab PO SCH (11:00)
[2017-03-06] MEDS: Dextrose 5%/0.9% NS 1,000 ML IV SCH (11:00)
--- NOTE | 2017-03-06 11:16 | CP.PCM.PN ---
<Rao Cochran - Last Filed: 03/06/17 11:13> Subjective - Date & Time of Evaluation Date of Evaluation: 03/06/17 Time of Evaluation: 11:13 - Subjective Subjective: PGY-[address] Ruiz. No acute overnight events noted. Patient was seen and examined at bedside this AM. She was AAOx3. She was sitting in chair and myself and Dr Ruiz helped her to standup to gauge her strength however she had difficulty in doing this. She didn't have any complaints. She denied focal deficits. She denied chest pain, shortness of breath, abdominal pain, nausea, vomiting, diarrhea, dysuria, headaches, neck stiffness. Objective - Vital Signs/Intake and Output Vital Signs (last 24 hours): Temp Pulse Resp BP Pulse Ox 98 F 93 H 18 128/68 99 03/06/17 07:00 03/06/17 08:53 03/06/17 07:00 03/06/17 10:51 03/06/17 07:00 Intake and Output: 03/06/17 03/06/17 06:59 18:59 Intake Total 800 Balance 800 - Medications Medications: Current Medications Acetaminophen (Tylenol 325mg Tab) 650 mg PO Q6 PRN PRN Reason: Pain, Mild (1-3) Amlodipine Besylate (Norvasc) 10 mg PO DAILY [facility] Last Admin: 03/06/17 09:29 Dose: 10 mg Carvedilol (Coreg) 3.125 mg PO BID [facility] Last Admin: 03/06/17 11:07 Dose: 3.125 mg Docusate Sodium (Colace) 100 mg PO BID PRN PRN Reason: Constipation Enoxaparin Sodium (Lovenox) 40 mg SC DAILY [facility] Last Admin: 03/06/17 09:29 Dose: 40 mg Hydralazine HCl (Apresoline) 10 mg IVP Q6H PRN PRN Reason: Systolic Blood Pressure Last Admin: 03/06/17 09:29 Dose: 10 mg Acyclovir 800 mg/ Sodium (Chloride) 250 mls @ 166.667 mls/hr IV Q8H [facility] Last Admin: 03/06/17 05:53 Dose: 166.667 mls/hr Dextrose/Sodium Chloride (Dextrose 5%/0.9% Ns 1000 Ml) 1,000 mls @ 75 mls/hr IV .[id number] [facility] Last Admin: 03/05/17 22:05 Dose: 75 mls/hr Ceftriaxone Sodium 2 gm/ (Dextrose) 100 mls @ 100 mls/hr IVPB Q12H [facility] Last Admin: 03/06/17 03:41 Dose: 100 mls/hr Insulin Human Regular (Novolin R) 0 unit SC ACHS ROBINA PRN Reason: Protocol Last Admin: 03/06/17 08:15 Dose: Not Given Ondansetron HCl (Zofran Inj) 4 mg IVP Q6 PRN PRN Reason: Nausea/Vomiting Pantoprazole Sodium (Protonix Inj) 40 mg IVP DAILY [facility] Last Admin: 03/06/17 09:29 Dose: 40 mg Potassium Chloride (K-Dur 20 Meq Er Tab) 40 meq PO ONCE [facility] Last Admin: 03/06/17 11:08 Dose: 40 meq - Labs Labs: 03/06/17 08:27 03/06/17 08:27 PT 12.8 SECONDS (9.7-12.2) H 03/02/17 19:56 INR 1.1 03/02/17 19:56 APTT 32 SECONDS (21-34) 03/02/17 19:56 - Additional Findings Additional findings: - Constitutional Appears: No Acute Distress, appears well - Head Exam Head Exam: ATRAUMATIC, NORMAL INSPECTION - Eye Exam Eye Exam: EOMI - ENT Exam ENT Exam: Mucous Membranes Moist - Neck Exam Neck Exam: Normal Inspection. absent: Lymphadenopathy - Respiratory Exam Respiratory Exam: Clear to Ausculation Bilateral, NORMAL BREATHING PATTERN. absent: Rales, Rhonchi, Wheezes - Cardiovascular Exam Cardiovascular Exam: Systolic murmur, REGULAR RHYTHM, +S1, +S2. absent: Bradycardia, Tachycardia - GI/Abdominal Exam GI & Abdominal Exam: Soft. absent: Tenderness - Extremities Exam Extremities Exam: no focal deficits, weakness with ambulation absent: Pedal Edema - Neurological Exam Neurological Exam: Alert, Awake, Oriented x3 Additional comments: No meningeal signs, no neck stiffness - Psychiatric Exam Psychiatric exam: Normal Affect, Normal Mood - Skin Skin Exam: Intact, Normal Color, Warm Assessment and Plan - Assessment and Plan (Free Text) Assessment: AMS- Viral Meningits * AAOx3 * Consider viral meningitis * CT head: chronic white matter changes * LP 03/02 * glucose 97 * protien 75 * WBC 3 * CSF culture no growth up to date * MRI brain 03/03/17 No suspicious contrast enhancement pattern throughout the brain. There is no evidence to suggest meningitis based on the normal contrast enhancement pattern appreciated * ID (Eliel Malloy) * acyclovir 800mg IV Q8 started 03/03 * ceftriaxone 2gm ivpb q12h started 03/05 * Blood cultures 03/02/17 negative up to date * Procalcitonin 2.47 H * ECHO 03/04: normal LV size, normal EF, moderate concentric LV hypertrophy, aortic valve is moderately sclerotic, mild valvular aortic stenosis * Venous doppler 03/05/17: no evidence of deep or superficial vein thrombosis of right or left lower extremity. Valvular incompetence noted of upper great saphenous vein. HTN * norvasc 10mg po qd * hydralazine 10mg ivp prn, if systolic blood pressure > 160 * coreg 3.125mg po bid UTI * Urine culture 03/03/17 negative * ceftriaxone 2gm ivpb q12h started 03/05 DM * sugars well controlled * accuchecks * ISS High dose Hx of coffee-ground Emesis, resolved * FOBT negative * IV protonix PPx * colace 100mg po bid prn * IV protonix * PT/OT - PT recommends rehab as pt exhibits severe, acute and evolving impairment of all functional mobility and ambulation * D5NS @ 75 * lovenox 40mg sc qd * consistent carb diet Disposition: Patient with no insurance. Discharge to home with rolling walker. <Mukesh Ruiz H - Last Filed: 03/06/17 15:58> Objective - Vital Signs/Intake and Output Vital Signs (last 24 hours): Temp Pulse Resp BP Pulse Ox 98 F 93 H 18 128/68 99 03/06/17 07:00 03/06/17 08:53 03/06/17 07:00 03/06/17 10:51 03/06/17 07:00 Intake and Output: 03/06/17 03/06/17 06:59 18:59 Intake Total 800 Balance 800 - Medications Medications: Current Medications Acetaminophen (Tylenol 325mg Tab) 650 mg PO Q6 PRN PRN Reason: Pain, Mild (1-3) Amlodipine Besylate (Norvasc) 10 mg PO DAILY [facility] Last Admin: 03/06/17 09:29 Dose: 10 mg Carvedilol (Coreg) 3.125 mg PO BID [facility] Last Admin: 03/06/17 11:07 Dose: 3.125 mg Docusate Sodium (Colace) 100 mg PO BID PRN PRN Reason: Constipation Enoxaparin Sodium (Lovenox) 40 mg SC DAILY [facility] Last Admin: 03/06/17 09:29 Dose: 40 mg Hydralazine HCl (Apresoline) 10 mg IVP Q6H PRN PRN Reason: Systolic Blood Pressure Last Admin: 03/06/17 09:29 Dose: 10 mg Acyclovir 800 mg/ Sodium (Chloride) 250 mls @ 166.667 mls/hr IV Q8H [facility] Last Admin: 03/06/17 14:41 Dose: 166.667 mls/hr Dextrose/Sodium Chloride (Dextrose 5%/0.9% Ns 1000 Ml) 1,000 mls @ 75 mls/hr IV .[id number] [facility] Last Admin: 03/06/17 11:00 Dose: Not Given Ceftriaxone Sodium 2 gm/ (Dextrose) 100 mls @ 100 mls/hr IVPB Q12H [facility] Last Admin: 03/06/17 03:41 Dose: 100 mls/hr Insulin Human Regular (Novolin R) 0 unit SC ACHS ROBINA PRN Reason: Protocol Last Admin: 03/06/17 12:10 Dose: 2 unit Ondansetron HCl (Zofran Inj) 4 mg IVP Q6 PRN PRN Reason: Nausea/Vomiting Pantoprazole Sodium (Protonix Inj) 40 mg IVP DAILY [facility] Last Admin: 03/06/17 09:29 Dose: 40 mg Pantoprazole Sodium (Protonix Inj) 40 mg IVP DAILY [facility] Potassium Chloride (K-Dur 20 Meq Er Tab) 40 meq PO ONCE [facility] Last Admin: 03/06/17 11:08 Dose: 40 meq - Labs Labs: 03/06/17 08:27 03/06/17 08:27 PT 12.8 SECONDS (9.7-12.2) H 03/02/17 19:56 INR 1.1 03/02/17 19:56 APTT 32 SECONDS (21-34) 03/02/17 19:56 Attending/Attestation - Attestation I have personally seen and examined this patient.: Yes I have fully participated in the care of the patient.: Yes I have reviewed all pertinent clinical information, including history, physical exam and plan: Yes Notes (Text): 03/06/17 15:57 Medical attending: Patient was seen and examined by me, agree the above note by biomedical manager. The patient was are was not under any acute distress however when we saw examined her we tried to see how strong she was and it appeared that she had difficulty getting out of bed. We were able to get her to stand up and take a few steps however because she appeared to be quite weak we had her sit back down. As mentioned previously the patient did have an LP, the fluid of the CSF appeared to be stable. Also the cultures of the CSF remains negative at this time for 3 days and blood cultures are also negative as well The patient's blood pressure has been somewhat elevated yesterday we started Norvasc 10 as well as IV hydralazine when necessary today we added on Coreg to be given twice a day Thank you very much, Mukesh Ruiz
[2017-03-07] MEDS: cefTRIAXone 2 GM in Dextrose 5% In Water 100 ML IVPB SCH (03:16)
[2017-03-07 07:42] LABS: BASO % 0.6 % (0.0-2.0); EOS # 0.1 K/uL (0.0-0.7); EOS % 2.7 % (0.0-4.0); HEMATOCRIT 38.6 % (34.0-47.0); LYMPH # 1.2 K/uL (1.0-4.3); LYMPH % 24.4 % (20.0-40.0); MEAN CELL VOLUME 83.1 fL (81.0-99.0); MEAN CORPUSCULAR HEMOGLOBIN 26.1 pg (27.0-31.0); MEAN CORPUSCULAR HGB CONC 31.4 g/dL (33.0-37.0); MEAN PLATELET VOLUME 9.9 fL (7.2-11.7); MONO # 0.7 K/uL (0.0-0.8); MONO % 13.7 % (0.0-10.0); NRBC % 0.1 % (0.0-2.0); RED CELL DISTRIBUTION WIDTH 14.6 % (11.5-14.5); WHITE BLOOD COUNT 4.8 K/uL (4.8-10.8)
[2017-03-07 08:41] VITALS: O2SAT 97
[2017-03-07 08:48] LABS: POTASSIUM 3.6 mmol/L (3.6-5.2)
[2017-03-07 08:50] LABS: ALB/GLOB RATIO 0.9 (1.0-2.1); BILIRUBIN,TOTAL 0.7 mg/dL (0.2-1.3); TOTAL PROTEIN 6.9 g/dL (6.3-8.3)
[2017-03-07 08:51] LABS: CALCIUM 9.1 mg/dl (8.6-10.4)
[2017-03-07] MEDS: (Novolin R) Insulin Human Regular 100 units/ml vial SC SCH ×2 (08:54→12:00)
[2017-03-07] MEDS: Enoxaparin 40 mg Syringe SC SCH (09:45)
[2017-03-07] MEDS: Dextrose 5%/0.9% NS 1,000 ML IV SCH (09:56)
--- NOTE | 2017-03-07 13:43 | CP.PCM.DIS ---
<Rao Cochran - Last Filed: 03/07/17 13:30> Provider - Provider Date of Admission: 03/02/17 00:00 Attending physician: Mukesh Ruiz DO Primary care physician: PMD: none Consults: Infectious Disease: Dr Kelsie Malloy Time Spent in preparation of Discharge (in minutes): 45 Diagnosis - Discharge Diagnosis (1) Hypertension Status: Acute Priority: High (2) Mental status change Status: Resolved Priority: Low Hospital Course - Lab Results Lab Results: Micro Results 03/02/17 21:00 Blood-Venous Blood Culture - Preliminary NO GROWTH AFTER 4 DAYS 03/02/17 21:30 Blood-Venous Blood Culture - Preliminary NO GROWTH AFTER 4 DAYS 03/02/17 23:00 Cerebral Spinal Fluid Gram Stain - Final 03/02/17 23:00 Cerebral Spinal Fluid CSF Culture - Preliminary NO GROWTH AFTER 4 DAYS 03/02/17 22:44 Urine,Catheterized Urine Culture - Final No Growth (<1,000 CFU/ML) Most Recent Lab Values WBC 4.8 K/uL (4.8-10.8) 03/07/17 07:33 RBC 4.64 Mil/uL (3.80-5.20) 03/07/17 07:33 Hgb 12.1 g/dL (11.0-16.0) 03/07/17 07:33 Hct 38.6 % (34.0-47.0) 03/07/17 07:33 MCV 83.1 fL (81.0-99.0) 03/07/17 07:33 MCH 26.1 pg (27.0-31.0) L 03/07/17 07:33 MCHC 31.4 g/dL (33.0-37.0) L 03/07/17 07:33 RDW 14.6 % (11.5-14.5) H 03/07/17 07:33 Plt Count 165 K/uL (130-400) 03/07/17 07:33 MPV 9.9 fL (7.2-11.7) 03/07/17 07:33 Neut % (Auto) 58.6 % (50.0-75.0) 03/07/17 07:33 Lymph % (Auto) 24.4 % (20.0-40.0) 03/07/17 07:33 Dare % (Auto) 13.7 % (0.0-10.0) H 03/07/17 07:33 Eos % (Auto) 2.7 % (0.0-4.0) 03/07/17 07:33 Baso % (Auto) 0.6 % (0.0-2.0) 03/07/17 07:33 Neut # 2.8 K/uL (1.8-7.0) 03/07/17 07:33 Lymph # 1.2 K/uL (1.0-4.3) 03/07/17 07:33 Dare # 0.7 K/uL (0.0-0.8) 03/07/17 07:33 Eos # 0.1 K/uL (0.0-0.7) 03/07/17 07:33 Baso # 0.0 K/uL (0.0-0.2) 03/07/17 07:33 Neutrophils % (Manual) 92 % (50-75) H 03/02/17 19:56 Lymphocytes % (Manual) 6 % (20-40) L 03/02/17 19:56 Monocytes % (Manual) 2 % (0-10) 03/02/17 19:56 Differential Comment 03/04/17 08:26 Platelet Estimate Normal (NORMAL) 03/02/17 19:56 PT 12.8 SECONDS (9.7-12.2) H 03/02/17 19:56 INR 1.1 03/02/17 19:56 APTT 32 SECONDS (21-34) 03/02/17 19:56 Sodium 138 mmol/L (132-148) 03/07/17 07:33 Potassium 3.6 mmol/L (3.6-5.2) 03/07/17 07:33 Chloride 105 mmol/L (98-107) 03/07/17 07:33 Carbon Dioxide 23 mmol/L (22-30) 03/07/17 07:33 Anion Gap 13 (10-20) 03/07/17 07:33 BUN 15 mg/dL (7-17) 03/07/17 07:33 Creatinine 1.2 mg/dL (0.7-1.2) 03/07/17 07:33 Est GFR ( Amer) 54 03/07/17 07:33 Est GFR (Non-Af Amer) 44 03/07/17 07:33 POC Glucose (mg/dL) 84 mg/dL (65-110) 03/07/17 11:58 Random Glucose 150 mg/dL (65-105) H 03/07/17 07:33 Hemoglobin A1c 6.7 % (4.2-6.5) H 03/02/17 19:56 Calcium 9.1 mg/dl (8.6-10.4) 03/07/17 07:33 Phosphorus 2.2 mg/dL (2.5-4.5) L 03/04/17 08:26 Magnesium 1.6 mg/dL (1.6-2.3) 03/04/17 08:26 Total Bilirubin 0.7 mg/dL (0.2-1.3) 03/07/17 07:33 AST 92 U/L (14-36) H D 03/07/17 07:33 ALT 57 U/L (9-52) H 03/07/17 07:33 Alkaline Phosphatase 54 U/L (38-126) 03/07/17 07:33 Troponin I 0.0250 ng/mL (0.00-0.120) 03/02/17 19:56 Total Protein 6.9 g/dL (6.3-8.3) 03/07/17 07:33 Albumin 3.3 g/dL (3.5-5.0) L 03/07/17 07:33 Globulin 3.6 gm/dL (2.2-3.9) 03/07/17 07:33 Albumin/Globulin Ratio 0.9 (1.0-2.1) L 03/07/17 07:33 Triglycerides 69 mg/dL (0-149) 03/02/17 19:56 Cholesterol 139 mg/dL (0-199) 03/02/17 19:56 LDL Cholesterol Direct 35 mg/dL (0-129) 03/02/17 19:56 HDL Cholesterol 79 mg/dL (30-70) H 03/02/17 19:56 Procalcitonin 2.47 NG/ML (0.19-0.49) H 03/03/17 19:50 Urine Color Yellow (YELLOW) 03/02/17 21:28 Urine Clarity Clear (Clear) 03/02/17 21:28 Urine pH 6.0 (5.0-8.0) 03/02/17 21:28 Ur Specific Eleanor 1.018 (1.003-1.030) 03/02/17 21: Urine Protein 3+ mg/dL (NEGATIVE) H 03/02/17 21:28 Urine Glucose (UA) 1+ mg/dL (Normal) 03/02/17 21: Urine Ketones Negative mg/dL (NEGATIVE) 03/02/17: Urine Blood 2+ (NEGATIVE) H 03/02/17: Urine Nitrate Negative (NEGATIVE) 03/02/17 21: Urine Bilirubin Negative (NEGATIVE) 03/02/17: Urine Urobilinogen Normal mg/dL (0.2-1.0) 03/02/17: Ur Leukocyte Esterase 1+ Marciano/uL (Negative) H 03/02/17 21: Urine WBC (Auto) 10 /hpf (0-5) H 03/02/17: Urine RBC (Auto) 7 /hpf (0-3) H 03/02/17 21:28 Urine Bacteria Rare (<OCC) 03/02/17 21:28 Fluid Type Spinal fluid 03/02/17 23:11 CSF Volume 1 mL (0-1) 03/02/17 23:11 CSF Appearance Clear/colorless (CLEAR) 03/02/17 23:11 CSF WBC 3.0 /mm3 (0.0-5.0) 03/02/17 23:11 CSF RBC 42.0 /mm3 (0.0-0.0) H 03/02/17 23:11 CSF Total Cell Counted TEST NOT PERFORMED 03/02/17 23:11 CSF Monos/Macrophages TEST NOT PERFORMED 03/02/17 23:11 CSF Comment 03/02/17 23:11 CSF Glucose 97 mg/dL (40-70) H 03/02/17 22:57 CSF Total Protein 75.0 mg/dL (12-60) H 03/02/17 22:57 CSF VDRL Nonreactive (Nonreactive) 03/02/17 23:11 - Hospital Course Hospital Course: CC: AMS HPI: Patient is a 71F with a PMH of DM, HLD, HTN, Epilepsy and Migraines who presents to the ED with AMS. Her found her at 3:30 am hanging off the side of the bed but still responsive. He states that yesterday she was unsteady on her feet. He put the patient back to bed when he found her. At 5pm the daughter arrived at the house and the patient was unable to recognize her daughter or her grandchildren. states the patient was struggling walking to the bathroom. She had vomit on her shirt when he found her and also vomited when he walked her to the bathroom. Patient had a normal BM today but had diarrhea 3 days ago. Denies prior episodes. describes the vomit as coffee grounds. + weakness and dizziness, + changes in speech and confusion. Denies ROSADO , CP, abdominal pain, leg pain, rash, changes in urine or blood in urine. Denies sick contacts, denies recent travel. PMH: * Migrains * DM * HTN * HLD * Epilepsy PSH: Tubal Ligation FH: Mother strokes SH: , lives with , 120 pack year smoking history, 1 pint per day for 30 years, denies illicit drugs Meds: none Allergies: none Full Code HOSPITAL COURSE: This is a patient who came in with altered mental status. Viral meningitis was initially considered, Dr Malloy of infectious disease was consulted. Her procalcitonin was high at 2.47. She was promptly started on acyclovir 800mg IV Q8 started 03/03 and ceftriaxone 2gm ivpb q12h started . An LP was done which showed glucose 97, protien 75, WBC 3, CSF culture which showed no growth up to date. A CT head showed chronic white matter changes. An MRI brain showed "no suspicious contrast enhancement pattern throughout the brain. There is no evidence to suggest meningitis based on the normal contrast enhancement pattern appreciated". An ECHO was ordered which showed "normal LV size, normal EF, moderate concentric LV hypertrophy, aortic valve is moderately sclerotic, mild valvular aortic stenosis". Venous dopplers were ordered which showed "no evidence of deep or superficial vein thrombosis of right or left lower extremity. Valvular incompetence noted of upper great saphenous vein". This patient had very high blood pressure levels and it was considered that her altered mental status could be secondary to her uncontrolled high blood pressure , as she does not have a primary medical doctor. She was started on norvasc 10mg po qd, hydralazine 10mg ivp prn, if systolic blood pressure > 160, and coreg 3.125mg po bid. These medication controlled her blood pressure to normal levels. Upon discharge she was instructed to fill her scripts and take these medications as we believe this is what most likely contributed to her presenting altered mental status. She had a urinanalysis suggestive of UTI. A urine culture came back negative. She was given ceftriaxone 2gm ivpb q12. She presented with a history of coffee-ground emesis. An FOBT was negative and her hemoglobin was stable. She was given IV protonix. Her sugars were well controlled. She was put on an insulin sliding scale and accuchecks were done achs. She uses a wheelchair at home and it was advised to her that she continue to use the wheel chair when she returns home as she has a very unsteady gait. Discharge Exam - Head Exam Head Exam: ATRAUMATIC, NORMAL INSPECTION - Additional Findings Additional findings: - Constitutional Appears: No Acute Distress, appears well - Head Exam Head Exam: ATRAUMATIC, NORMAL INSPECTION - Eye Exam Eye Exam: EOMI - ENT Exam ENT Exam: Mucous Membranes Moist - Neck Exam Neck Exam: Normal Inspection. absent: Lymphadenopathy - Respiratory Exam Respiratory Exam: Clear to Ausculation Bilateral, NORMAL BREATHING PATTERN. absent: Rales, Rhonchi, Wheezes - Cardiovascular Exam Cardiovascular Exam: Systolic murmur, REGULAR RHYTHM, +S1, +S2. absent: Bradycardia, Tachycardia - GI/Abdominal Exam GI & Abdominal Exam: Soft. absent: Tenderness - Extremities Exam Extremities Exam: no focal deficits, weakness with ambulation absent: Pedal Edema - Neurological Exam Neurological Exam: Alert, Awake, Oriented x3 Additional comments: No meningeal signs, no neck stiffness - Psychiatric Exam Psychiatric exam: Normal Affect, Normal Mood - Skin Skin Exam: Intact, Normal Color, Warm Discharge Plan - Discharge Medications Prescriptions: amLODIPine [Norvasc] 10 mg PO DAILY 30 Days tab Carvedilol [Coreg] 3.125 mg PO BID 30 Days tab - Follow Up Plan Condition: FAIR Disposition: HOME/ ROUTINE Instructions: Amlodipine (By mouth), Carvedilol (By mouth), Heart Healthy Diet (DC), Hypertension (DC), Altered Mental Status (GEN) Additional Instructions: Patient is medically stable for discharge. A prescription will be given for the following NEW medications: Amlodipine 10mg 1 tablet by mouth once a day Carvedilol 3.125mg 1 tablet by mouth twice a day (morning and bedtime) The patient does not have a primary medical doctor. She needs to establish care with a primary medical doctor that she call follow-up with regarding this admission. If symptoms return or worsen, please return to the ER. Referrals: [facility] [Outside] <Mukesh Ruiz - Last Filed: 03/07/17 17:54> Provider - Provider Date of Admission: 03/02/17 00:00 Attending physician: Mukesh Ruiz DO Hospital Course - Lab Results Lab Results: Micro Results 03/02/17 23:00 Cerebral Spinal Fluid Gram Stain - Final 03/02/17 23:00 Cerebral Spinal Fluid CSF Culture - Final No growth. 03/02/17 21:00 Blood-Venous Blood Culture - Preliminary NO GROWTH AFTER 4 DAYS 03/02/17 21:30 Blood-Venous Blood Culture - Preliminary NO GROWTH AFTER 4 DAYS 03/02/17 22:44 Urine,Catheterized Urine Culture - Final No Growth (<1,000 CFU/ML) Most Recent Lab Values WBC 4.8 K/uL (4.8-10.8) 03/07/17 07:33 RBC 4.64 Mil/uL (3.80-5.20) 03/07/17 07:33 Hgb 12.1 g/dL (11.0-16.0) 03/07/17 07:33 Hct 38.6 % (34.0-47.0) 03/07/17 07:33 MCV 83.1 fL (81.0-99.0) 03/07/17 07:33 MCH 26.1 pg (27.0-31.0) L 03/07/17 07:33 MCHC 31.4 g/dL (33.0-37.0) L 03/07/17 07:33 RDW 14.6 % (11.5-14.5) H 03/07/17 07:33 Plt Count 165 K/uL (130-400) 03/07/17 07:33 MPV 9.9 fL (7.2-11.7) 03/07/17 07:33 Neut % (Auto) 58.6 % (50.0-75.0) 03/07/17 07:33 Lymph % (Auto) 24.4 % (20.0-40.0) 03/07/17 07:33 Dare % (Auto) 13.7 % (0.0-10.0) H 03/07/17 07:33 Eos % (Auto) 2.7 % (0.0-4.0) 03/07/17 07:33 Baso % (Auto) 0.6 % (0.0-2.0) 03/07/17 07:33 Neut # 2.8 K/uL (1.8-7.0) 03/07/17 07:33 Lymph # 1.2 K/uL (1.0-4.3) 03/07/17 07:33 Dare # 0.7 K/uL (0.0-0.8) 03/07/17 07:33 Eos # 0.1 K/uL (0.0-0.7) 03/07/17 07:33 Baso # 0.0 K/uL (0.0-0.2) 03/07/17 07:33 Neutrophils % (Manual) 92 % (50-75) H 03/02/17 19:56 Lymphocytes % (Manual) 6 % (20-40) L 03/02/17 19:56 Monocytes % (Manual) 2 % (0-10) 03/02/17 19:56 Differential Comment 03/04/17 08:26 Platelet Estimate Normal (NORMAL) 03/02/17 19:56 PT 12.8 SECONDS (9.7-12.2) H 03/02/17 19:56 INR 1.1 03/02/17 19:56 APTT 32 SECONDS (21-34) 03/02/17 19:56 Sodium 138 mmol/L (132-148) 03/07/17 07:33 Potassium 3.6 mmol/L (3.6-5.2) 03/07/17 07:33 Chloride 105 mmol/L (98-107) 03/07/17 07:33 Carbon Dioxide 23 mmol/L (22-30) 03/07/17 07:33 Anion Gap 13 (10-20) 03/07/17 07:33 BUN 15 mg/dL (7-17) 03/07/17 07:33 Creatinine 1.2 mg/dL (0.7-1.2) 03/07/17 07:33 Est GFR ( Amer) 54 03/07/17 07:33 Est GFR (Non-Af Amer) 44 03/07/17 07:33 POC Glucose (mg/dL) 121 mg/dL (65-110) H 03/07/17 16:19 Random Glucose 150 mg/dL (65-105) H 03/07/17 07:33 Hemoglobin A1c 6.7 % (4.2-6.5) H 03/02/17 19:56 Calcium 9.1 mg/dl (8.6-10.4) 03/07/17 07:33 Phosphorus 2.2 mg/dL (2.5-4.5) L 03/04/17 08:26 Magnesium 1.6 mg/dL (1.6-2.3) 03/04/17 08:26 Total Bilirubin 0.7 mg/dL (0.2-1.3) 03/07/17 07:33 AST 92 U/L (14-36) H D 03/07/17 07:33 ALT 57 U/L (9-52) H 03/07/17 07:33 Alkaline Phosphatase 54 U/L (38-126) 03/07/17 07:33 Troponin I 0.0250 ng/mL (0.00-0.120) 03/02/17 19:56 Total Protein 6.9 g/dL (6.3-8.3) 03/07/17 07:33 Albumin 3.3 g/dL (3.5-5.0) L 03/07/17 07:33 Globulin 3.6 gm/dL (2.2-3.9) 03/07/17 07:33 Albumin/Globulin Ratio 0.9 (1.0-2.1) L 03/07/17 07:33 Triglycerides 69 mg/dL (0-149) 03/02/17 19:56 Cholesterol 139 mg/dL (0-199) 03/02/17 19:56 LDL Cholesterol Direct 35 mg/dL (0-129) 03/02/17 19:56 HDL Cholesterol 79 mg/dL (30-70) H 03/02/17 19:56 Procalcitonin 2.47 NG/ML (0.19-0.49) H 03/03/17 19:50 Urine Color Yellow (YELLOW) 03/02/17 21:28 Urine Clarity Clear (Clear) 03/02/17 21:28 Urine pH 6.0 (5.0-8.0) 03/02/17 21:28 Ur Specific Eleanor 1.018 (1.003-1.030) 03/02/17 21:28 Urine Protein 3+ mg/dL (NEGATIVE) H 03/02/17 21:28 Urine Glucose (UA) 1+ mg/dL (Normal) 03/02/17 21: Urine Ketones Negative mg/dL (NEGATIVE) 03/02/17 21: Urine Blood 2+ (NEGATIVE) H 03/02/17 21:28 Urine Nitrate Negative (NEGATIVE) 03/02/17 21: Urine Bilirubin Negative (NEGATIVE) 03/02/17 21: Urine Urobilinogen Normal mg/dL (0.2-1.0) 03/02/17 21: Ur Leukocyte Esterase 1+ Marciano/uL (Negative) H 03/02/17 21:28 Urine WBC (Auto) 10 /hpf (0-5) H 03/02/17 21:28 Urine RBC (Auto) 7 /hpf (0-3) H 03/02/17 21:28 Urine Bacteria Rare (<OCC) 03/02/17 21:28 Fluid Type Spinal fluid 03/02/17 23:11 CSF Volume 1 mL (0-1) 03/02/17 23:11 CSF Appearance Clear/colorless (CLEAR) 03/02/17 23:11 CSF WBC 3.0 /mm3 (0.0-5.0) 03/02/17 23:11 CSF RBC 42.0 /mm3 (0.0-0.0) H 03/02/17 23:11 CSF Total Cell Counted TEST NOT PERFORMED 03/02/17 23:11 CSF Monos/Macrophages TEST NOT PERFORMED 03/02/17 23:11 CSF Comment 03/02/17 23:11 CSF Glucose 97 mg/dL (40-70) H 03/02/17 22:57 CSF Total Protein 75.0 mg/dL (12-60) H 03/02/17 22:57 CSF VDRL Nonreactive (Nonreactive) 03/02/17 23:11 Attending/Attestation - Attestation I have personally seen and examined this patient.: Yes I have fully participated in the care of the patient.: Yes I have reviewed all pertinent clinical information, including history, physical exam and plan: Yes Notes (Text): 03/07/17 17:54 Medical attending: Patient was seen and examined by me, agrees the above note by chief medical director. The patient was seen and examined by us, she was not under any acute distress when we saw her. She was sitting up out of bed. She did appear to be much more alert and much more awake today. She was asking to go home. With the help of stretch box tender we found out that the patient already has a wheelchair at home as well as a walker as well. The patient's white blood cell count elevation has been resolved. The CSF cultures have been negative as well for the past 4 days, but blood cultures also negative as 40s as well. She does not later. On physical exam she was able to stand up and try to ambulate a few steps however she says that normally she uses a rolling walker or cane when she is inside her house Thank you very much, Mukesh Ruiz
[2017-03-07 15:59] VITALS: BP 166/92; PULSE 76; RESP 20; TEMP 97.7
== END 2017-03-07 17:43 | disposition home or self-care (01) | DRG 305 ==
LOC: C.ER 19:36 → C.6T 03-03 01:41
PROVIDERS: ADMIT Hospitalist; ATTEND Hospitalist
DX: I10 Essential (primary) hypertension (principal); N39.0 Urinary tract infection, site not specified; E11.9 Type 2 diabetes mellitus without complications; G40.909 Epilepsy, unspecified, not intractable, without status epilepticus; R41.0 Disorientation, unspecified; E78.5 Hyperlipidemia, unspecified; I35.0 Nonrheumatic aortic (valve) stenosis; K59.00 Constipation, unspecified; G43.909 Migraine, unspecified, not intractable, without status migrainosus; R11.10 Vomiting, unspecified; F17.210 Nicotine dependence, cigarettes, uncomplicated; Z82.3 Family history of stroke; Z91.19 Patient's noncompliance with other medical treatment and regimen; Z79.4 Long term (current) use of insulin